=== PATIENT | male | born 1940 | race Caucasian/White ===

== ENCOUNTER 2016-08-23 12:43 | Emergency (ER) | payer MEDICARE, BC ==
--- NOTE | 2016-08-23 13:09 | ERNOTE ---
Upper Extremity HPI - Narrative Date of Service: 08/23/16 - General Extremities Pain Location: collar-bone area: bilateral, shoulder: left Time Seen by Provider: 08/23/16 13:02 Source: patient, family - Immun/Allergies/Home Medications Immunizations: IMMUNIZATION HX Immunizations Up to Date Yes History of Influenza Vaccine Yes Hx Pneumococcal Vaccination Yes Allergies/Adverse Reactions: Allergies Allergy/AdvReac Type Severity Reaction Status Date / Time No Known Allergies Allergy Verified 08/23/16 12:55 Home Medications: HOME MEDICATIONS Albuterol Sulfate [Proair Hfa] 2 puff IH Q4H PRN #1 inhaler 10/15/15 [Last Taken Unknown] Atorvastatin Calcium 20 mg PO HS 10/15/15 [Last Taken Unknown] Clopidogrel Bisulfate [Plavix] 75 mg PO DAILY 10/15/15 [Last Taken Unknown] Dutasteride [Avodart] 0.5 mg PO DAILY 10/15/15 [Last Taken Unknown] Glimepiride 4 mg PO DAILY 10/15/15 [Last Taken Unknown] Levothyroxine Sodium [Synthroid] 75 mcg PO DAILY 10/15/15 [Last Taken Unknown] Lisinopril 5 mg PO DAILY 10/15/15 [Last Taken Unknown] Metoprolol Tartrate [Lopressor] 50 mg PO BID 10/15/15 [Last Taken Unknown] Multivitamins [Multivitamin Loy] 1 cap PO DAILY 10/15/15 [Last Taken Unknown] Nitroglycerin [Nitrostat] 0.4 mg SL Q5MX3 PRN 10/15/15 [Last Taken Unknown] Potassium 99 mg PO DAILY 10/15/15 [Last Taken Unknown] Ranitidine HCl [Zantac] 300 mg PO DAILY 10/15/15 [Last Taken Unknown] metFORMIN HCL [Glucophage Xr] 750 mg PO DAILY 10/15/15 [Last Taken Unknown] Hydrocodone/Acetaminophen [Vicodin 5-300 mg Tablet] 1 tab PO Q6H PRN #30 tab [Last Taken Unknown] - History of Present Illness Narrative: AT [employer], 1ST OPEN DAY OF SEASON, GOING AFTER A BALL IN ROUGH AND SLIPPED LANDING ON LEFT LATERAL SHOULDER WITH PAIN TO UPPER HUMERUS AREA. NO SWELLING OR BRUISING OR DEFORMITY BUT HURTS WHEN HE TRIES TO ELEVATE THE ARM. NO OTHER INJURY. JUST HAPPENED [employer]. Occurred: just prior to arrival Method of Injury: Reports: fell Review of Systems - Review of Systems Constitutional: Present: See HPI EYE: Present: no symptoms reported ENT: Present: no symptoms reported Respiratory: Present: no symptoms reported Cardiology: Present: no symptoms reported Gastrointestinal/Abdominal: Present: no symptoms reported Genitourinary: Present: no symptoms reported Musculoskeletal: Present: See HPI, joint pain Skin: Present: no symptoms reported Neurological: Present: no symptoms reported Endocrine: Present: no symptoms reported Hematologic/Lymphatic: Present: no symptoms reported Psych: Present: no symptoms reported - Patient's Past Medical History Patient History - Medical: Diabetes Type 2, Hypothyroidism Patient History - Cardiac/Respiratory: Hypertension, Hyperlipidemia, Myocardial Infarction Patient History - Surgical Procedures: Cardiac stent Patient History - Other: None - Social History Living Situations: home Abuse History: No History of abuse Psych History: No pertinent hx Have you smoked in the past 12 months: No Do you dip or chew tobacco: Yes - chew Alcohol Use: sober Drug Use: none - Immunizations Immunizations Up to Date: Yes Hx Pneumococcal Vaccination: Yes History of Influenza Vaccine: Yes Physical Exam - Physical Exam General Appearance: Present: wd/wn, alert, no apparent distress Peripheral Pulses: N=norm/S=strong/W=weak/B=bound/A=absent: Radial (L): Normal Extremity Exam: Present: normal inspection, no edema, decreased range of motion , other - TENDER TO LEFT LATERAL SUP. HUMERUS , LAT. SHOULDER AREA. HURTS TO ELEVATE ARM. Neurological Exam: Present: alert, oriented, normal mood/affect, no motor/ sensory deficits ED Progress - Vital Signs Vital Signs: Vital Signs 08/23/16 12:49 Pulse Rate 60 Respiratory 18 Rate Blood Pressure 161/78 O2 Sat by Pulse 96 Oximetry - X-Ray X-Ray #1 X-Ray: shoulder X-ray Comments: Patient Patient Name:GENO BUENROSTRO Date: 1940 Sex: M Order Number: [id number] Unique Exam ID: [id number] Exam Requested: SHLDR-3-LT - Shoulder 3 or More Views LT * Date Scheduled: Study Priority: Requesting Service: Requesting Physician: Juan Alvarez Reason for Exam: Radiological Report : Exam Date: 08/23/2016 13:13 Ordering Physician: Juan Alvarez Indication: [place] Comparison: None Technique: Shoulder 3 or More Views LT * Findings: Normal bony mineralization and alignment. No fracture or dislocation. Degenerative changes are seen. No lytic or blastic changes. No soft tissue abnormality. IMPRESSION: NO ACUTE OSSEOUS ABNORMALITY Electronically signed by Jose Leigh M.D.. - Progress/Reassessment Chief Complaint: Shoulder Injury/Pain Departure Clinical Impression: Shoulder contusion - Departure Disposition: Home Follow Up Needed Condition: Fair Instructions: Shoulder Range of Motion Exercises, Contusion, [id number] Additional Instructions: ICE FOR FIRST DAY, THEN USE HEAT FOR COMFORT. GENTLE ACTIVITY . LET PAIN BE YOUR GUIDE. PLAIN TYLENOL FOR ROUTINE PAIN AND VICODIN IF PAIN IS MORE SEVERE. IF NOT IMPROVING RECHECK WITH YOUR YOUR FAMILY DOCTOR SOMETIMES THESE INJURIES CAN LEAD TO ROTATOR CUFF PROBLEMS AND A LONGER REHAB. Referrals: Kar Sutton MD [Primary Care Provider] - Prescriptions: Hydrocodone/Acetaminophen [Vicodin 5-300 mg Tablet] 1 tab PO Q6H PRN #30 tab PRN Reason: Pain
[2016-08-23 14:25] VITALS: BP 159/81
== END 2016-08-23 14:00 | disposition home or self-care (01) ==
LOC: ER 12:43
DX: S40.012A Contusion of left shoulder, initial encounter (principal); F17.220 Nicotine dependence, chewing tobacco, uncomplicated; W01.0XXA Fall on same level from slipping, tripping and stumbling without subsequent striking against object, initial encounter; Y93.53 Activity, golf; Y92.39 Other specified sports and athletic area as the place of occurrence of the external cause; E03.9 Hypothyroidism, unspecified; I10 Essential (primary) hypertension; E11.9 Type 2 diabetes mellitus without complications; Z95.5 Presence of coronary angioplasty implant and graft

== ENCOUNTER 2016-11-28 12:33 | Emergency (ER) | payer MEDICARE, BC ==
[2016-11-28 14:13] VITALS: BP 151/75
--- NOTE | 2016-11-28 14:32 | ERNOTE ---
Trauma/Assault HPI - Narrative Date of Service: 11/28/16 - General Stated Complaint: FALL FRIDAY,SIDE AND BACK PAIN Time Seen by Provider: 11/28/16 14:31 Source: patient, family, RN notes reviewed Exam Limitations: no limitations - Immun/Allergies/Home Medications Immunizations: IMMUNIZATION HX Immunizations Up to Date Yes History of Influenza Vaccine Yes Hx Pneumococcal Vaccination Yes Allergies/Adverse Reactions: Allergies No Known Allergies Allergy (Verified 11/28/16 12:49) Home Medications: HOME MEDICATIONS Atorvastatin Calcium 20 mg PO HS 10/15/15 [Last Taken Unknown] Dutasteride [Avodart] 0.5 mg PO DAILY 10/15/15 [Last Taken Unknown] Glimepiride 4 mg PO DAILY 10/15/15 [Last Taken Unknown] Levothyroxine Sodium [Synthroid] 75 mcg PO DAILY 10/15/15 [Last Taken Unknown] Lisinopril 5 mg PO DAILY 10/15/15 [Last Taken Unknown] Metoprolol Tartrate [Lopressor] 50 mg PO BID 10/15/15 [Last Taken Unknown] Multivitamins [Multivitamin Loy] 1 cap PO DAILY 10/15/15 [Last Taken Unknown] Nitroglycerin [Nitrostat] 0.4 mg SL Q5MX3 PRN 10/15/15 [Last Taken Unknown] Potassium 99 mg PO DAILY 10/15/15 [Last Taken Unknown] metFORMIN HCL [Glucophage Xr] 750 mg PO DAILY 10/15/15 [Last Taken Unknown] Acetaminophen [Tylenol] 650 mg PO Q4H PRN 11/28/16 [Last Taken Unknown] HYDROcodone/ACETAMINOPHEN [[place] 5-325] 1 - 2 tab PO Q6H PRN #24 tab 11/28/16 [ Last Taken Unknown] - History of Present Illness Date (Duration): 11/26/16 Narrative: Lazaro is a 76-year-old male brought to the emergency Department by private vehicle for rib pain due to a fall 2 days ago. He reports tripping over the hose at a gas pump at a local gas station and falling. The fall was witnessed. He denies any head injury or loss of consciousness. He is having pain in his right lower anterior and posterior ribs. He has been taking Tylenol without improvement. He has also been wearing a rib belt. Location Occurred: Reports: other Pain Location: Reports: chest, back - mid Method of Injury: Reports: fall Loss of Consciousness: Reports: no loss of consciousness Associated Symptoms - Trauma: Denies: headache, confusion, dizziness, lightheadedness, trouble walking, vision changes, neck pain, shortness of breath , abdominal pain, nausea, vomiting Review of Systems - Review of Systems Constitutional: Absent: recent illness, fever, malaise EYE: Present: no symptoms reported ENT: Present: no symptoms reported Respiratory: Absent: shortness of breath, cough Cardiology: Absent: palpitations, syncope, edema Gastrointestinal/Abdominal: Present: See HPI Genitourinary: Absent: dysuria, hematuria Musculoskeletal: Present: back pain, muscle pain. Absent: neck pain, joint pain , joint swelling Skin: Absent: lesions, lumps, change in color Neurological: Absent: headache, dizziness/light-headedness, weakness, numbness, tingling Endocrine: Present: no symptoms reported Hematologic/Lymphatic: Present: easy bruising, easy bleeding Psych: Present: no symptoms reported - Patient's Past Medical History Patient History - Medical: Diabetes Type 2, Hypothyroidism Patient History - Cardiac/Respiratory: Hypertension, Hyperlipidemia, Myocardial Infarction Patient History - Cancer: No Hx of Cancer Patient History - Surgical Procedures: Cardiac stent Patient History - Other: None - Social History Living Situations: home Abuse History: No History of abuse Psych History: No pertinent hx Smoking Status: Never smoker Do you dip or chew tobacco: Yes Alcohol Use: sober Drug Use: none - Immunizations Immunizations Up to Date: Yes Hx Pneumococcal Vaccination: Yes History of Influenza Vaccine: Yes Physical Exam - Physical Exam General Appearance: Present: wd/wn, alert, no apparent distress, other - appears uncomfortable with movement Neck: Present: normal inspection, nontender, supple, full range of motion Respiratory: Present: no respiratory distress, normal breath sounds, no accessory muscle use, lungs clear, chest tenderness - right lower ribs anteriorly and posteriorly Cardiovascular/Chest: Present: regular rate, rhythm, no murmur, normal peripheral pulses Gastrointestinal/Abdominal: Present: nontender, nondistended, soft Back Exam: Present: no CVA tenderness, no vertebral tenderness Extremity Exam: Present: normal inspection, normal range of motion, no edema Neurological Exam: Present: alert, oriented, normal mood/affect, no motor/ sensory deficits Skin Exam: Present: normal color, warm/dry ED Progress - Vital Signs Patient's Vital Signs:: I have reviewed the patient's vital signs. Vital Signs: Vital Signs 11/28/16 11/28/16 12:42 14:09 Temperature 36.9 C Pulse Rate 66 66 Respiratory 20 18 Rate Blood Pressure 162/79 151/75 O2 Sat by Pulse 95 95 Oximetry - X-Ray X-Ray #1 X-Ray: lumbosacral Interpretation: Reviewed by me X-ray Comments: TECHNIQUE: AP, lateral, coned-down lateral, bilateral oblique views of the lumbar spine were obtained. 5 images obtained. COMPARISON: None available. FINDINGS: Lumbar Complete W/ Obliques *: Five nonrib-bearing lumbar vertebral bodies are noted. Pedicles are intact and symmetric. Interpediculate distances are normal. There is slight anterior wedging of T12 and L1 vertebral bodies. There is questionable cortical discontinuity at the anterior cortex of the L4 vertebral body. Normal alignment is seen. Severe disc space narrowing noted at L4-L5 with endplate degenerative changes and vacuum phenomena at the disc space. There is mild to moderate disc space narrowing predominantly at the posterior aspect of the L5-S1. Facet joint degenerative changes of L4-L5 and L5-S1 levels noted. Oblique images demonstrate no definite signs of spondylolysis. Incidental vascular calcifications of the abdominal aorta, suggestive of atherosclerosis. IMPRESSION: 1. Questionable anterior wedging of the T12 and L1 vertebral bodies. Questionable cortical discontinuity of the anterior cortex of L4 vertebral body. Overall suspicion is low for these findings representing acute mild compression fractures but correlate clinically. Consider follow-up by routine lumbar spine MRI to better characterize. 2. L4-L5 and L5-S1 degenerative disc disease and facet joint arthropathy as discussed above. 3. Additional comments as above. Electronically signed by Mercy Mckeon M.D.. X-Ray #2 X-Ray: chest Interpretation: Reviewed by me X-ray Comments: Chest PA Lateral * Hyperinflated lung volumes. Mildly elevated right hemidiaphragm with multiple diaphragmatic eventrations, stable. No consolidation or mass. No pneumothorax or pleural fluid collections. Mild cardiomegaly, stable. Mildly tortuous appearance of the thoracic aorta, stable. Trachea is in normal position. Bones show degenerative changes of the spine. Stable old right sixth and seventh rib fractures. IMPRESSION: 1. No focal acute cardiopulmonary finding. 2. No definite displaced rib fracture suggested. 3. Stable findings are as above. Electronically signed by Mercy Mckeon M.D.. - Progress/Reassessment Chief Complaint: Fall Progress:: Unchanged Departure Clinical Impression: Rib pain on right side Fall Qualifiers: Encounter type: initial encounter Qualified Code(s): W19.XXXA - Unspecified fall, initial encounter - Departure Disposition: Home Follow Up Needed Condition: Stable Instructions: Rib Contusion Additional Instructions: Stop wearing the rib belt Pain medication can cause drowsiness, dizziness, nausea, and constipation - do not take Tylenol in addition to it Ice/heat to sore areas Referrals: Kar Sutton MD [Primary Care Provider] - Prescriptions: HYDROcodone/ACETAMINOPHEN [[place] 5-325] 1 - 2 tab PO Q6H PRN #24 tab PRN Reason: Pain
[2016-11-28] MEDS ORDERED: HYDROcodone/ACETAMINOPHEN 1 EACH TABLET PO ONE (14:44)
[2016-11-28] MEDS ORDERED: HYDROcodone/ACETAMINOPHEN 1 EACH TABLET ONE (14:54)
== END 2016-11-28 15:01 | disposition home or self-care (01) ==
LOC: ER 12:33
DX: R07.81 Pleurodynia (principal); E03.9 Hypothyroidism, unspecified; E11.9 Type 2 diabetes mellitus without complications; I10 Essential (primary) hypertension; E78.5 Hyperlipidemia, unspecified; Z95.5 Presence of coronary angioplasty implant and graft; F17.220 Nicotine dependence, chewing tobacco, uncomplicated; W01.0XXA Fall on same level from slipping, tripping and stumbling without subsequent striking against object, initial encounter; Y93.89 Activity, other specified; Y92.524 Gas station as the place of occurrence of the external cause